=== PATIENT | female | born 1990 | race Caucasian/White ===

== ENCOUNTER → 2017-11-30 11:03 | Outpatient (CLI) | payer MEDICAID, SELFPAY | PROVIDERS: Visit Provider Nurse Practitioner Family | DX: R53.83 Other fatigue (principal) ==

== ENCOUNTER 2021-12-16 21:26 | Emergency (ER) | payer MEDICAID, SELFPAY ==
[2021-12-16 21:27] VITALS: BP 122/88; PULSE 95; RESP 18; TEMP 37.1; O2SAT 99; BMI 26.6
[2021-12-16 21:31] VITALS: BP 122/88; PULSE 93; O2SAT 97
--- NOTE | 2021-12-16 21:49 | PC.NURSE ---
at BS speaking with pt
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
--- NOTE | 2021-12-16 22:05 | PC.NURSE ---
pt to ct
[2021-12-16 22:41] VITALS: BP 112/88; PULSE 92; O2SAT 100
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
[2021-12-17 00:24] VITALS: BP 114/78; PULSE 90; RESP 18; TEMP 37.1; O2SAT 100
== END 2021-12-17 00:29 | disposition home or self-care (01) ==
PROVIDERS: Emergency Provider Student in an Organized Health Care Education/Training Program; PCP Family Medicine
DX: S02.2XXA Fracture of nasal bones, initial encounter for closed fracture (principal); S01.81XA Laceration without foreign body of other part of head, initial encounter; Y04.2XXA Assault by strike against or bumped into by another person, initial encounter; Y92.096 Garden or yard of other non-institutional residence as the place of occurrence of the external cause; Z23 Encounter for immunization; B19.20 Unspecified viral hepatitis C without hepatic coma; F41.9 Anxiety disorder, unspecified; F32.A Depression, unspecified; Z72.0 Tobacco use
CPT/HCPCS: 12011; 70450; 70486; 90471; 90715; 99284